=== PATIENT | male | born 1990 | race Two or more races ===

== ENCOUNTER 2024-08-27 21:10 | Emergency (ER) | payer OTHER ==
[~2024-08-27] VITALS: Ht 167.6 cm; Wt 93.9 kg
[2024-08-27] MEDS ORDERED: TOPROL XL25 M1 (21:14)
[2024-08-27] MEDS ORDERED: METFORMIN HCL500 M3 (21:14)
[2024-08-27 21:16] VITALS: BP 131/81; O2SAT 95
[2024-08-27] MEDS ORDERED: CEFTRIAXONE SODIUM 1,000 MG VIAL IM STA (22:08)
[2024-08-27] MEDS ORDERED: KETOROLAC TROMETHAMINE 30 MG VIAL IM STA (22:09)
[2024-08-27] MEDS ORDERED: CEFTRIAXONE SODIUM 1,000 MG VIAL ONE (22:12)
[2024-08-27] MEDS ORDERED: KETOROLAC TROMETHAMINE 30 MG VIAL ONE (22:12)
[2024-08-27] MEDS ORDERED: LIDOCAINE HCL 1% 10ML VIAL ONE (22:12)
== END 2024-08-27 22:22 | disposition home or self-care (01) ==
LOC: ER 21:49
DX: M79.604 Pain in right leg (principal); M79.605 Pain in left leg; E11.9 Type 2 diabetes mellitus without complications; Z79.84 Long term (current) use of oral hypoglycemic drugs